=== PATIENT | female | born 1940 | race Caucasian/White ===

== ENCOUNTER 2020-06-14 15:50 | Emergency (ER) | payer MEDICARE ==
[~2020-06-14] VITALS: Ht 170.2 cm; Wt 81.6 kg
--- NOTE | 2020-06-14 15:50 | NUR ---
PT [id number] HOME C/O L SHOULDER PAIN W/ NOTED BRUISING S/P GLF FRIDAY. PT IS AAOX3, NOT IN RESPIRATORY DISTRESS, HOOKED TO PENAL OFFICER, KEPT RESTED AND COMFORTABLE. WILL CONTINUE TO MONITOR.
--- NOTE | 2020-06-14 17:20 | NUR ---
SEEN AND EXMAINED BY .
[2020-06-14] MEDS ORDERED: ONDANSETRON 4 MG TAB.RAPDIS SL ONE (17:30)
[2020-06-14] MEDS ORDERED: HYDROCODONE/APAP 5/325MG TABLET PO ONE (17:30)
[2020-06-14] MEDS ORDERED: ONDANSETRON 4 MG TAB.RAPDIS ONE (17:38)
[2020-06-14] MEDS ORDERED: HYDROCODONE/APAP 5/325MG TABLET ONE (17:38)
--- NOTE | 2020-06-14 17:51 | NUR ---
PUBLIC HEALTH ADVISOR AT BEDSIDE FOR XRAY.
[2020-06-14] MEDS ORDERED: TYL2T MC (18:39)
[2020-06-14] MEDS ORDERED: HYDR-4275 PO (18:40)
[2020-06-14 18:48] VITALS: BP 123/66
--- NOTE | 2020-06-14 18:48 | NUR ---
Patient discharged to home in stable condition. Written and verbal after care instructions given. Patient verbalizes understanding of instruction.
== END 2020-06-14 18:49 | disposition home or self-care (01) ==
LOC: ER 15:53
DX: S42.212A Unspecified displaced fracture of surgical neck of left humerus, initial encounter for closed fracture (principal); S42.022A Displaced fracture of shaft of left clavicle, initial encounter for closed fracture; S22.42XA Multiple fractures of ribs, left side, initial encounter for closed fracture; F32.9 Major depressive disorder, single episode, unspecified; E78.5 Hyperlipidemia, unspecified; E07.9 Disorder of thyroid, unspecified; Z79.899 Other long term (current) drug therapy; Z98.890 Other specified postprocedural states; W18.39XA Other fall on same level, initial encounter; Y93.89 Activity, other specified; Y92.89 Other specified places as the place of occurrence of the external cause; Y99.8 Other external cause status
CPT/HCPCS: 71100-TC; 73000-TC; 73030-TC; 73060-TC; Q0162